=== PATIENT | male | born 1980 | race Caucasian/White ===

== ENCOUNTER 2024-11-27 09:53 | Emergency (ER) | payer MEDICARE, MEDICAID ==
[~2024-11-27 09:53] MED LIST: ISOPTIN SR120 M1 PO; PHENERGAN W/ DE30 ML PO; PREDNICOT10 MG PO; PROAIR HFA0.09 MG/AC INH
[2024-11-27] MEDS ORDERED: FLUCONAZOLE100 MG PO (11:02)
[2024-11-27] MEDS ORDERED: NYSTATIN1 EAC5 MC (11:02)
== END 2024-11-27 11:30 | disposition home or self-care (01) ==
LOC: ED 09:53
DX: B35.3 Tinea pedis (principal); F32.A Depression, unspecified; R05.9 Cough, unspecified; R09.81 Nasal congestion

== ENCOUNTER → 2024-12-13 | Outpatient (CLI) | payer MEDICARE, MEDICAID ==
[~2024-12-13] MED LIST changes: +FLUCONAZOLE100 MG PO; +NYSTATIN1 EAC5 MC
[2024-12-13 12:52] LABS: BASO # 0.1 10*3/uL (0.0-0.1); BASO % 1.0 % (0.0-1.0); EOS # 0.0 10*3/uL (0.0-0.4); EOS % 0.8 % (1.0-4.0); MEAN CELL VOLUME 84.6 fl (80.0-94.0); MEAN CORPUSCULAR HGB 28.2 pg (27.0-31.0); MEAN PLATELET VOLUME 11.0 fl (9.6-12.3); MONO # 0.4 10*3/uL (0.1-1.0); MONO % 7.2 % (3.0-9.0); NEUT # 2.5 10*3/uL (2.3-7.9); NEUT % 50.9 % (47.0-73.0); NUCLEATED RED BLOOD CELL 0.0 % (0.0-0.0); NUCLEATED RED BLOOD CELL 0.0 10*3/uL (0.0-0.0); PLATELET COUNT AUTOMATED 240 10*3/uL (130-400); RED CELL DISTRI WIDTH 12.3 % (0-14.5)
[2024-12-13 13:35] LABS: BUN 9 mg/dl (9-23); SGPT/ALT 154 U/L (5-49)
[2024-12-13 13:37] LABS: VITAMIN D, 25-HYDROXY 42.4 ng/mL (30-100)
== END | disposition home or self-care (01) ==
LOC: RESCLI 02:24 → LAB 02:24 → RESCLI 03:47
PROVIDERS: ATTEND Family Medicine
DX: E11.9 Type 2 diabetes mellitus without complications (principal)

== ENCOUNTER 2024-12-29 11:29 | Emergency (ER) | payer MEDICARE, MEDICAID ==
[~2024-12-29] VITALS: Ht 185.4 cm; Wt 142.4 kg
[2024-12-29 12:52] LABS: BILIRUBIN Negative (Negative); BLOOD Negative (Negative); CLARITY Clear (Clear); COLOR Yellow (Yellow); KETONE Negative (Negative); LEUKO ESTERASE Negative (Negative); NITRITE Negative (Negative); PH 7.0 (4.5-8.0); SPECIFIC GRAVITY >= 1.030 (1.001-1.030); UROBILINOGEN 1.0 E.U./dl (0.0-1.0)
[2024-12-29 13:08] LABS: BACTERIA TRACE; WBC 0-2 wbc/hpf (0-5); YEAST TRACE
[2024-12-29] MEDS ORDERED: FLUCONAZOLE100 MG PO (14:00)
[2024-12-29] MEDS ORDERED: ATHLETIC FOOT C30 GM T (14:00)
== END 2024-12-29 14:08 | disposition home or self-care (01) ==
LOC: ED 11:29
PROVIDERS: Nurse Practitioner Family
DX: B37.42 Candidal balanitis (principal); I86.1 Scrotal varices; F32.A Depression, unspecified

== ENCOUNTER → 2025-01-10 | Outpatient (CLI) | payer MEDICARE, MEDICAID ==
[~2025-01-10] MED LIST changes: +ATHLETIC FOOT C30 GM T
== END | disposition home or self-care (01) ==
LOC: RESCLI 01:40
PROVIDERS: ATTEND Internal Medicine
DX: E11.65 Type 2 diabetes mellitus with hyperglycemia (principal); E66.9 Obesity, unspecified; E78.5 Hyperlipidemia, unspecified; K21.9 Gastro-esophageal reflux disease without esophagitis; R07.9 Chest pain, unspecified; Z79.899 Other long term (current) drug therapy; Z98.890 Other specified postprocedural states